=== PATIENT | male | born 1990 | race African-American/Black ===

== ENCOUNTER 2019-08-13 14:20 | Emergency (ER) | payer SELFPAY ==
[~2019-08-13] VITALS: Ht 180.3 cm; Wt 74.8 kg
[2019-08-13 14:30] VITALS: BP 129/68
--- NOTE | 2019-08-13 14:30 | NUR ---
ED Nurse Note: Pt AAOX4, vsss, no acute distress. Pt c/o left sholder dislocation with pain at 9/10. PT AMBULATED TO ED and stated that he was WRESTLING X 2 DAYS AGO when this happened. No skin issues or wounds noted.
--- NOTE | 2019-08-13 14:48 | NUR ---
ED Nurse Note: Pt with X-Ray tech
[2019-08-13] MEDS ORDERED: Propofol 200mg/20ml IV ONE (15:15)
--- NOTE | 2019-08-13 15:30 | NUR ---
cosent signed for left shoulder reduction under moderate sedation
--- NOTE | 2019-08-13 15:38 | Diagnostic Imaging Report ---
Indication: Trauma, pain Technique: 3 views of the left shoulder Comparison: none Findings: There is an anterior dislocation of the left humeral head. No definite fracture. Impression: Positive for anterior left shoulder dislocation
[2019-08-13 15:41] VITALS: BP 149/87
--- NOTE | 2019-08-13 16:00 | NUR ---
tolerated the procedure shoulder immobalized to left arm applied
[2019-08-13] MEDS ORDERED: IBUPROFEN600 MG ORAL (16:22)
--- NOTE | 2019-08-13 16:30 | NUR ---
awake alert oriented x 4 waiting for family to come
--- NOTE | 2019-08-13 16:46 | Diagnostic Imaging Report ---
Indication: Post reduction, pain Technique: 2 views of the left shoulder Comparison: One hour earlier Findings: Interim reduction of previously demonstrated left shoulder dislocation, alignment now anatomic. No associated fracture. Impression: Satisfactory reduction of previously demonstrated left shoulder dislocation
[2019-08-13 16:54] VITALS: BP 120/87
--- NOTE | 2019-08-13 17:46 | NUR ---
ER DISCHARGE NOTE: Patient is cleared to be discharged per ERMD, pt is aox4, on room air, with stable vital signs. pt was given dc and prescription instructions, pt was able to verbalize understanding, pt id band and iv site removed without complications. pt is able to ambulate with steady gait. pt took all belongings. Pt states pain is 2/10. Pt left ED with a friend.
--- NOTE | 2019-08-13 18:34 | Emergency Room Report ---
History of Present Illness General Chief Complaint: Upper Extremity Injury Source: Patient Present Illness HPI Patient presents with complaints of what he feels is left-sided shoulder dislocation reports on Tuesday he was wrestling with some of his friends he feels that the initial injury happened at that time He did not have much discomfort yesterday however today as he felt that after awaking he had increased discomfort to the left shoulder Presents to the ER Denies any head injury denies any lapse of consciousness denies any chest pain pain is localized to the left shoulder 8 out of 10 with touch or any attempts of moving it Denies any neuropathy in the hand denies any change in color denies any neck pain Allergies: Coded Allergies: ACETAMINOPHEN (Verified Allergy, Unknown, 08/13/19) OXYCODONE (Verified Allergy, Unknown, 08/13/19) Patient History Past Medical History: see triage record Reviewed Nursing Documentation: PMH: Agreed; PSxH: Agreed Nursing Documentation-PMH Past Medical History: No Stated History Review of Systems All Other Systems: negative except mentioned in HPI Physical Exam Vital Signs Date Time Temp Pulse Resp B/P (MAP) Pulse Ox O2 Delivery O2 Flow Rate FiO2 08/13/19 14:23 98.2 98 16 133/71 (91) 97 Room Air 08/13/19 15:35 2.0 99 Sp02 EP Interpretation: reviewed, normal General Appearance: well appearing, no apparent distress Head: normocephalic, atraumatic Eyes: bilateral eye PERRL, bilateral eye EOMI ENT: normal pharynx Neck: full range of motion, supple Respiratory: lungs clear, no respiratory distress, no retraction Cardiovascular #1: regular rate, rhythm Gastrointestinal: non tender, soft Musculoskeletal: other - Clinical deformity to the left anterior shoulder, consistent with likely dislocation neurovascularly intact however distally Neurologic: alert, oriented x3 Skin: no rash Lymphatic: no adenopathy Procedures Splinting Splinting : Consent: Verbal Location: left Shoulder Pre-Made Type: Splint: Shoulder immobilizer Pre-Proc Neuro Vasc Exam: normal Post-Proc Neuro Vasc Exam: normal Patient Tolerated: Well Complications: None Joint Reduction Joint Reduction : Consent: Written Joint Reduction Site: shoulder (L) Procedural Sedation: Yes Reduction Attempts: One Pre-Procedure NV Exam: Yes Post-Procedure NV Exam: Yes Post Joint Reduction Film: joint reduced Patient Tolerated: Well Complications: None Procedural Sedation Consent: Emergent Airway Assessment (Malampati): I Heart: normal Lungs: normal Abdomen: normal Extremities: normal Procedures/Plans: Closed Reduction Plan for Moderate Sedation: Propofol ASA Score: I Start Time: 15:40 End Time: 15:45 Total Time: 0005 Communication: No Apparent Limitation Mental Status: Awake Respiration: Unlabored Skin Condition: WNL Abdomen: WNL Nausea: NO Vomiting: NO Additional Comments: Total [id number] time 10 minutes Medical Decision Making Diagnostic Impression: Primary Impression: shoulder dislocation ER Course Upon arrival x-ray imaging does reveal a left-sided shoulder dislocation Patient has significant discomfort and does not want to attempt any procedures prior to medication Please refer to the procedural sedation note for the acute intervention patient tolerated well and reduction was also appropriate x-ray imaging confirms dislocation and Reduction Patient watched after continues to do well Splint is applied and patient requires close outpatient follow-up Rhythm Strip Diag. Results EP Interpretation: yes Rate: 80 Rhythm: NSR, no PVC's, no ectopy Other X-Ray Diagnostic Results Other X-Ray Diagnostic Results #1: X-Ray ordered: Left shoulder # of Views/Limited Vs Complete: 3 View Indication: Pain EP Interpretation: Yes Interpretation: no soft tissue swelling, no fractures, other - Inferior dislocation Impression: Other - Acute dislocation Electronically Signed by: Charlee Jha DO Other X-Ray Diagnostic Results #2: X-Ray ordered: Left shoulder # of Views/Limited Vs Complete: 2 View Indication: Other - Reduction procedure EP Interpretation: Yes Interpretation: no dislocation, no soft tissue swelling, no fractures Impression: No acute disease - Appropriate reduction Electronically Signed by: Charlee Jha DO Last Vital Signs Date Time Temp Pulse Resp B/P (MAP) Pulse Ox O2 Delivery O2 Flow Rate FiO2 08/13/19 16:54 98.2 77 18 120/87 100 Room Air 08/13/19 15:41 2.0 08/13/19 15:35 99 Status: improved Disposition: HOME, SELF-CARE Condition: Improved Scripts Ibuprofen* (MOTRIN*) 600 Mg Tablet 600 MG ORAL Q8H PRN for For Pain, #20 TAB 0 Refills Prov: Charlee Jha DO 08/13/19 Referrals: NOT CHOSEN IPA/,REFERRING (PCP) [facility] Open 24 hour /7 days a week by Appointment Only [address] [facility] [id number] Patient Instructions: Shoulder Dislocation, [id number] Additional Instructions: Patient is provided with the discharge instructions notified to follow up with primary doctor in the next 2-3 days otherwise return to the er with any worsening symptoms. Please note that this report is being documented using DRAGON technology. This can lead to erroneous entry secondary to incorrect interpretation by the dictating instrument. Charlee Jha DO Aug 13, 2019 18:34
== END 2019-08-13 16:54 | disposition home or self-care (01) ==
LOC: EMR 14:35
DX: S43.005A Unspecified dislocation of left shoulder joint, initial encounter (principal); Y93.83 Activity, rough housing and horseplay; Z88.6 Allergy status to analgesic agent
CPT/HCPCS: 23650; 73020; 73030; 99283; J2704